=== PATIENT | female | born 1995 | race Caucasian/White ===

== ENCOUNTER 2024-11-13 12:03 | Emergency (ER) | payer OTHER ==
[~2024-11-13] VITALS: Ht 170.2 cm; Wt 95.0 kg
[2024-11-13 12:15] VITALS: O2SAT 99
[2024-11-13] MEDS: LIDOCAINE HCL 1% 20ML VIAL INL ONE (13:18)
[2024-11-13] MEDS: TETANUS, DIPHTHERIA, PERTUSSIS VAC/PF 0.5ML (>10YR OLD) IM ONE (13:19)
[2024-11-13] MEDS ORDERED: TOPUD MT (15:02)
[2024-11-13] MEDS ORDERED: BO1 TP (15:02)
[2024-11-13 15:07] VITALS: BP 139/90; PULSE 99; RESP 18; TEMP 36.9; O2SAT 99
== END 2024-11-13 15:23 | disposition home or self-care (01) ==
LOC: ER 12:03
DX: S81.811A Laceration without foreign body, right lower leg, initial encounter (principal); Z79.899 Other long term (current) drug therapy; W45.8XXA Other foreign body or object entering through skin, initial encounter; Y93.89 Activity, other specified; Y92.89 Other specified places as the place of occurrence of the external cause; Y99.8 Other external cause status
CPT/HCPCS: 90715; 12002; 90471; 99283; J2003; Z7610 ×2; 96372

== ENCOUNTER 2024-11-24 13:33 | Emergency (ER) | payer OTHER ==
[~2024-11-24] VITALS: Ht 170.2 cm; Wt 100.0 kg
[~2024-11-24 13:33] MED LIST: BO1 TP; TOPUD MT
[2024-11-24 13:36] VITALS: TEMP 37; O2SAT 100
[2024-11-24 15:28] VITALS: BP 130/87; PULSE 89; RESP 18; O2SAT 97
== END 2024-11-24 15:28 | disposition home or self-care (01) ==
LOC: ER 13:33
DX: S81.811D Laceration without foreign body, right lower leg, subsequent encounter (principal); X58.XXXD Exposure to other specified factors, subsequent encounter
CPT/HCPCS: 99281; Z7610